=== PATIENT | male | born 1950 | race Caucasian/White ===

== ENCOUNTER 2016-06-24 11:17 | Inpatient (IN) | payer MEDICARE ==
--- NOTE | 2016-06-24 12:10 | ER Document Report ---
ED Neuro Symptoms/Deficit - General Chief Complaint: Numbness of Arm Stated Complaint: NUMBNESS LEFT ARM Notes: Patient says his left hand and arm have been known since 6:30 this morning. He got up at his usual time this morning and was getting his clothes on when he noticed that he had numbness of the left hand. 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 He had slight headache on the right denominational region, but it's gone now. 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 Patient went to his primary care provider's office this morning and they gave him 4 baby aspirins and referred him here for further evaluation and care. Patient says he thought he noted a slight bit of problem with his balance and felt a little wobbly when he tried to walk, especially when he turned. He has no involvement of his leg. Has never had this before. No nausea or vomiting. No chest pains. No difficulty breathing or shortness of breath. No recent illness or fever. TRAVEL OUTSIDE OF THE [place] IN LAST 30 DAYS: No - Related Data Allergies/Adverse Reactions: No Known Allergies Allergy (Verified 11/01/13 07:48) Past Medical History - Social History Smoking Status: Current Every Day Smoker Family History: Reviewed & Not Pertinent Patient has suicidal ideation: No Patient has homicidal ideation: No - Past Medical History Cardiac Medical History: Reports: Hx Coronary Artery Disease, Hx Heart Attack - , Hx Hypertension - since , Hx Heart Murmur Denies: Hx Congestive Heart Failure Pulmonary Medical History: Reports: Hx Bronchitis, Hx Pneumonia Neurological Medical History: Denies: Hx Cerebrovascular Accident Endocrine Medical History: Denies: Hx Diabetes Mellitus Type 1, Hx Diabetes Mellitus Type 2 GI Medical History: Musculoskeltal Medical History: 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 EENT: Denies eye, ear, nose or mouth or throat pain or other symptoms. CARDIOVASCULAR: Denies chest pain. RESPIRATORY: Denies cough, chest congestion, or shortness of breath. GASTROINTESTINAL: Denies abdominal pain or nausea, vomiting, or diarrhea. GENITOURINARY: Denies difficulty or painful urinating, urinary frequency, blood in urine. MUSCULOSKELETAL: Denies back or neck pain. Denies joint pain or swelling. SKIN: Denies rash or skin lesions. NEUROLOGICAL: Denies LOC or altered mental status. Had a slight headache, gone now. See history of present illness. ALL OTHER SYSTEMS REVIEWED AND NEGATIVE. Physical Exam - Vital signs Vitals: Pulse Ox 99 06/24/16 11:50 Interpretation: Normal - Notes Notes: PHYSICAL EXAMINATION: GENERAL: Well-appearing, in no acute distress. HEAD: Atraumatic, normocephalic. EYES: Pupils equal round and reactive to light, extraocular movements intact. ENT: oropharynx clear without exudates. Moist mucous membranes. No carotid bruits heard. NECK: Normal range of motion, supple. LUNGS: Breath sounds clear and equal bilaterally. HEART: Regular rate and rhythm without murmurs. ABDOMEN: Soft, nontender. No guarding or rebound. BACK: No tenderness throughout entire back. EXTREMITIES: Normal range of motion without pain. NEUROLOGICAL: Normal speech, normal gait. Normal sensory, motor, and reflex exams. Awake, alert, and oriented x3. Cranial nerves normal. 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 PSYCH: Normal mood, normal affect. SKIN: Warm, dry, no rashes. Course - Re-evaluation Re-evalutation: 06/24/16 13:54 All workup has been normal, except for a possible pulmonary nodule. The chest x -ray. Radiology recommends a repeat chest x-ray with nipple markers and if that 's not decisive, patient may need a CT scan. Patient says that he was experiencing some chest pains that started about 10 minutes ago, but have now just about eased off. He points to the left anterior chest. Patient says he rarely had chest pain with all of his coronary artery disease in the past and hasn't taken any nitroglycerin for years. I spoke with the hospitalist sec reporting consultant and patient will be admitted to telemetry for observation. Also made hospitalist aware that patient has a questionable nodule on his x-ray and a follow-up x-ray with nipple markers has been ordered and the radiologist recommended a CT of the chest if those nipple markers are inconclusive. Patient also made aware. - Vital Signs Vital signs: Temp Pulse Resp BP Pulse Ox 58 L 18 149/84 H 99 06/24/16 12:00 06/24/16 12:01 06/24/16 12:01 06/24/16 12:01 - Laboratory Result Diagrams: 06/24/16 11:53 06/24/16 11:53 Laboratory results interpreted by me: 06/24/16 06/24/16 11:53 11:53 RBC 4.13 L Hgb 13.2 L RDW 14.4 H BUN 23 H Discharge - Discharge Clinical Impression: Left hand weakness Stroke Qualifiers: CVA mechanism: unspecified Qualified Code(s): I63.9 - Cerebral infarction, unspecified Admitting Provider: Hospitalist Unit Admitted: Telemetry Referrals: TAY HARE MD [Primary Care Provider] - Follow up as needed
[2016-06-24 12:32] LABS: PARTIAL THROMBOPLASTIN TIME 31.6 SEC (23.5-35.8)
[2016-06-24 12:34] LABS: ABSOLUTE LYMPHOCYTES (AUTO) 1.4 10^3/uL (0.5-4.7); ABSOLUTE MONOCYTES (AUTO) 0.6 10^3/uL (0.1-1.4); ABSOLUTE NEUT (AUTO) 3.4 10^3/uL (1.7-8.2); BASOPHILS % (AUTO) 0.3 % (0-2); EOSINOPHILS % (AUTO) 0.3 % (0-6); HEMOGLOBIN 13.2 g/dL (13.5-17.0); HGB HCT DIFFERENCE 0.6; LYMPHOCYTES % (AUTO) 26.1 % (13-45); MEAN CORPUSCULAR VOLUME 94 fl (80-97); MONOCYTES % (AUTO) 11.1 % (3-13); RED BLOOD COUNT 4.13 10^6/uL (4.35-5.55); RED CELL DISTRIBUTION WIDTH 14.4 % (11.5-14.0); SEGMENTED NEUTROPHILS % (AUTO) 62.2 % (42-78); WHITE BLOOD COUNT 5.5 10^3/uL (4.0-10.5)
[2016-06-24 12:35] LABS: ALANINE AMINOTRANSFERASE 38 U/L (21-72); ALBUMIN 4.2 g/dL (3.5-5.0); ALKALINE PHOSPHATASE 99 U/L (38-126); ANION GAP 13 (5-19); ASPARTATE AMINO TRANSFERASE 30 U/L (17-59); BILIRUBIN,DIRECT 0.3 mg/dL (0.0-0.4); BILIRUBIN,TOTAL 0.7 mg/dL (0.2-1.3); BLOOD UREA NITROGEN 23 mg/dL (7-20); CALCIUM 9.6 mg/dL (8.4-10.2); CARBON DIOXIDE 25 mmol/L (22-30); CHLORIDE 106 mmol/L (98-107); CREATINE KINASE 83 U/L (55-170); CREATININE RESULT 1.02 mg/dL (0.52-1.25); GLUCOSE 79 mg/dL (75-110); POTASSIUM 4.6 mmol/L (3.6-5.0); SODIUM 143.9 mmol/L (137-145); TOTAL PROTEIN 7.4 g/dL (6.3-8.2)
[2016-06-24 12:46] LABS: CREATINE KINASE MB 1.03 ng/mL (<4.55)
[2016-06-24 12:50] LABS: TROPONIN I < 0.012 ng/mL
[2016-06-24] MEDS ORDERED: ACETAMINOPHEN 325 MG TABLET PO PRN (13:55)
[2016-06-24] MEDS ORDERED: TRAMADOL HCL 50 MG TABLET PO PRN (13:55)
--- NOTE | 2016-06-24 14:21 | EKG REPORT ---
SEVERITY:- BORDERLINE ECG - SINUS RHYTHM BORDERLINE R WAVE PROGRESSION, ANTERIOR LEADS : Confirmed by: Mary Arcos 24-Jun-2016 14:20:33
--- NOTE | 2016-06-24 15:12 | PDOC H&P ---
History of Present Illness Admission Date/PCP: 06/24/16 13:55 TAY HARE MD Patient complains of: Left arm weakness and numbness History of Present Illness: LIZETH GÓMEZ is a 66 year old male with past medical history of CAD, status post CABG, status post stent 3, essential hypertension, dyslipidemia, GERD, and tobacco abuse. Presents to [facility] emergency room from his primary care provider's office late this morning, after noting left arm weakness and numbness as well as some difficulty in walking with his left leg. He denies any headache, neck pain or shoulder pain. He has had prior neck surgeries in the past. The numbness and weakness has been consistent has not improved or worsened over the course of the day. He was given 4 baby aspirin by his primary care provider and referred to the emergency room for evaluation. He denies any other symptoms. He has no facial droop or difficulty swallowing. He denies any chest pain, palpitations or dyspnea. He denies any nausea, vomiting or abdominal pain. Initial CT of the head was unremarkable. Past Medical History Cardiac Medical History: Reports: Coronary Artery Disease, Myocardial Infarction - , Hypertension - since , Heart Murmur Denies: Congestive Heart Failure Pulmonary Medical History: Reports: Bronchitis, Pneumonia Neurological Medical History: Reports: None Endocrine Medical History: Reports: None Denies: Diabetes Mellitus Type 1, Diabetes Mellitus Type 2 Renal/ Medical History: Reports: None Malignancy Medical History: Reports: None GI Medical History: Reports: None Musculoskeltal Medical History: Reports: Arthritis - left elbow Skin Medical History: Reports: None Psychiatric Medical History: Reports: None Traumatic Medical History: Reports: None Hematology: Reports: None Denies: Anemia Infectious Medical History: Reports: None Past Surgical History Past Surgical History: Reports: Cardiac Catheterization - 3 stents, Coronary Artery Bypass Graft - 1994, four-vessel, Coronary Stent - 3, Orthopedic Surgery - Neck surgery 2003, Other - Surgery for removal of some tissue from his lung in 1981, noncancerous Social History Information Source: Patient Lives with: Spouse/Significant other Smoking Status: Current Every Day Smoker Cigarettes Packs Per Day: 1 Number of Years Smokin Last Time Smoked: yesterday Frequency of Alcohol Use: Occasional Hx Recreational Drug Use: No Hx Prescription Drug Abuse: No - Advance Directive Resuscitation Status: Do Not Resuscitate Surrogate healthcare decision maker:: Family History Family History: CAD, Hyperlipidemia, Hypertension Parental Family History Reviewed: Yes Children Family History Reviewed: Yes Sibling(s) Family History Reviewed.: Yes Medication/Allergy Home Medications: Amlodipine Besylate [Norvasc 5 mg Tablet] 5 mg PO DAILY 07/19/12 Ascorbic Acid [Vitamin C] 2,000 mg PO DAILY 07/19/12 Aspirin [Ecotrin 81 mg EC Tablet] 81 mg PO DAILY 07/19/12 Atorvastatin Calcium [Lipitor 40 mg Tablet] 40 mg PO QHS 07/19/12 Doxazosin Mesylate [Cardura 2 Mg Tablet] 2 mg PO DAILY 07/19/12 Lisinopril [Zestril] 10 mg PO DAILY 11/01/13 Metoprolol Succinate [Toprol Xl] 50 mg PO DAILY 11/01/13 Allergies/Adverse Reactions: No Known Allergies Allergy (Verified 11/01/13 07:48) Review of Systems Constitutional: ABSENT: chills, fever(s), headache(s), weight gain, weight loss Eyes: ABSENT: visual disturbances Ears: ABSENT: hearing changes Cardiovascular: ABSENT: chest pain, dyspnea on exertion, edema, orthropnea, palpitations Respiratory: ABSENT: cough, hemoptysis Gastrointestinal: ABSENT: abdominal pain, constipation, diarrhea, hematemesis, hematochezia, nausea, vomiting Genitourinary: ABSENT: dysuria, hematuria Musculoskeletal: ABSENT: joint swelling Integumentary: ABSENT: rash, wounds Neurological: PRESENT: numbness, paresthesias - left arm, nor, weakness Psychiatric: ABSENT: anxiety, depression, homidical ideation, suicidal ideation Endocrine: ABSENT: cold intolerance, heat intolerance, polydipsia, polyuria Hematologic/Lymphatic: ABSENT: easy bleeding, easy bruising Physical Exam Vital Signs: Temp Pulse Resp BP Pulse Ox 58 L 18 149/84 H 99 06/24/16 12:00 06/24/16 12:01 06/24/16 12:01 06/24/16 12:01 General appearance: PRESENT: no acute distress, well-developed, well-nourished Head exam: PRESENT: atraumatic, normocephalic Eye exam: PRESENT: conjunctiva pink, EOMI, PERRLA. ABSENT: scleral icterus Ear exam: PRESENT: normal external ear exam Mouth exam: PRESENT: moist, tongue midline Neck exam: ABSENT: carotid bruit, JVD, lymphadenopathy, thyromegaly Respiratory exam: PRESENT: clear to auscultation halle. ABSENT: rales, rhonchi, wheezes Cardiovascular exam: PRESENT: RRR, +S1, +S2, systolic murmur Pulses: PRESENT: normal dorsalis pedis pul Vascular exam: PRESENT: normal capillary refill GI/Abdominal exam: PRESENT: normal bowel sounds, soft. ABSENT: distended, guarding, mass, organolmegaly, rebound, tenderness Rectal exam: PRESENT: deferred Extremities exam: PRESENT: full ROM. ABSENT: calf tenderness, clubbing, pedal edema Neurological exam: PRESENT: alert, awake, oriented to person, oriented to place , oriented to time, oriented to situation, CN II-XII grossly intact. ABSENT: motor sensory deficit Psychiatric exam: PRESENT: appropriate affect, normal mood. ABSENT: homicidal ideation, suicidal ideation Skin exam: PRESENT: dry, intact, warm. ABSENT: cyanosis, rash Results Impressions: Head CT 06/24/16 11:25 IMPRESSION: No acute intracranial abnormality identified. Chest X-Ray 06/24/16 12:20 IMPRESSION: Chronic lung changes with possible 10 mm right pulmonary nodule. Consider a PA view of the chest with a nipple marker. Consider CT. Assessment & Plan - Time Time Spent: 50 to 70 Minutes Critical Time spent with patient: 25-34 minutes
[2016-06-24] MEDS: LISINOPRIL 10 MG TABLET PO SCH (21:23)
[2016-06-24] MEDS ORDERED: ATORVASTATIN CALCIUM 10 MG TABLET PO SCH (22:00)
[2016-06-25 05:26] LABS: HEMOGLOBIN 12.7 g/dL (13.5-17.0); HGB HCT DIFFERENCE 1.1; MEAN CORPUSCULAR HEMOGLOBIN 32.2 pg (27.0-33.4); MEAN CORPUSCULAR HGB CONC 34.4 g/dL (32.0-36.0); MEAN CORPUSCULAR VOLUME 94 fl (80-97); RED BLOOD COUNT 3.96 10^6/uL (4.35-5.55); RED CELL DISTRIBUTION WIDTH 14.1 % (11.5-14.0); WHITE BLOOD COUNT 5.8 10^3/uL (4.0-10.5)
[2016-06-25 05:46] LABS: ALANINE AMINOTRANSFERASE 37 U/L (21-72); ALBUMIN 3.6 g/dL (3.5-5.0); ALKALINE PHOSPHATASE 84 U/L (38-126); ANION GAP 11 (5-19); ASPARTATE AMINO TRANSFERASE 27 U/L (17-59); BILIRUBIN,DIRECT 0.1 mg/dL (0.0-0.4); BILIRUBIN,TOTAL 0.5 mg/dL (0.2-1.3); BLOOD UREA NITROGEN 24 mg/dL (7-20); CALCIUM 9.2 mg/dL (8.4-10.2); CARBON DIOXIDE 23 mmol/L (22-30); CHLORIDE 108 mmol/L (98-107); CHOLESTEROL 129.67 mg/dL (0-200); CREATININE RESULT 1.01 mg/dL (0.52-1.25); Direct HDL 34 mg/dL (>40); GLUCOSE 87 mg/dL (75-110); POTASSIUM 4.4 mmol/L (3.6-5.0); SODIUM 141.8 mmol/L (137-145); TOTAL PROTEIN 6.4 g/dL (6.3-8.2); TRIGLYCERIDES 140 mg/dL (<150)
[2016-06-25 05:56] LABS: DIRECT LDL 62 mg/dL (<100)
[2016-06-25] MEDS ORDERED: ENOXAPARIN SODIUM INJ 40 MG/0.4 ML DISP.SYRIN SUBCUT SCH (08:00)
[2016-06-25] MEDS ORDERED: AMLODIPINE BESYLATE 10 MG TABLET PO SCH (10:00)
[2016-06-25] MEDS ORDERED: DOXAZOSIN MESYLATE 2 MG TABLET PO SCH (10:00)
[2016-06-25] MEDS ORDERED: FLUTICASONE NASAL SPRAY 50 MCG/SPRY 120 SPRAY/16 GM NASL SCH (10:00)
[2016-06-25] MEDS ORDERED: METOPROLOL SUCCINATE 50 MG TAB.SR.24H PO SCH (10:00)
[2016-06-25] MEDS ORDERED: ASPIRIN 325 MG TABLET, ENT COATED PO SCH (10:00)
[2016-06-25] MEDS: LISINOPRIL 10 MG TABLET PO SCH (10:51)
--- NOTE | 2016-06-25 13:42 | XCELERA REPORT ---
[address] [address] Transthoracic Echocardiogram Report Name: LIZETH GÓMEZ Age: 66 yrs Gender: Male : 1950 Patient Status: Inpatient Patient Location: 3S\S\330\S\A Study Date: 06/25/2016 09:56 AM Height: 68 in Weight: 160 lb BSA: 1.9 m2 Procedure: A two-dimensional transthoracic echocardiogram with color flow and Doppler was performed. The study was technically limited with all images being suboptimal in quality. Reason For Study: CVA History: CVA. Ordering Physician: HANS CELESTE Performed By: Barb Moe Interpretation Summary There is no obvious cardiac source of embolus noted on this transthoracic echocardiogram. Follow-up with a BETITO is suggested if cardiac source is still suspected. The left ventricle is mildly dilated. There is normal left ventricular wall thickness. LV EF is 55% Left ventricular systolic function is low normal. Doppler measurements suggest normal left ventricular diastolic function The left ventricular wall motion is normal. There is no thrombus. The right ventricle is not well visualized secondary to technical limitations The right atrium is normal. The left atrial size is normal. The interatrial septum is intact with no evidence for an atrial septal defect. There is no evidence of mitral valve prolapse. There is no vegetation seen on the mitral valve. There is no mitral valve stenosis. There is a mild to moderate amount of mitral regurgitation There is no aortic valve stenosis There is no LVOT obstruction. There is a mild amount of aortic regurgitation There is no tricuspid stenosis. There is a mild amount of tricuspid regurgitation Right ventricular systolic pressure is normal. RVSP is 26 mm of Hg , with RA mean of 5. There is no pericardial effusion. There is no obvious cardiac source of embolus noted on this transthoracic echocardiogram. Follow-up with a BETITO is suggested if cardiac source is still suspected MMode/2D Measurements \T\ Calculations RVDd: 3.0 cm LVIDd: 5.6 cm FS: 22.0 % Ao root diam: 2.7 cm IVSd: 1.0 cm LVIDs: 4.4 cm EDV(Teich): 155.4 ml LVPWd: 1.1 cm ESV(Teich): 87.1 ml Ao root area: 5.6 cm2 EF(Teich): 43.9 % LA dimension: 3.9 cm Doppler Measurements \T\ Calculations MV E max stephen: MV P1/2t max stephen: Ao V2 max: AI max stephen: 59.7 cm/sec 59.7 cm/sec 136.4 cm/sec 330.7 cm/sec MV A max stephen: MV P1/2t: 92.8 msec Ao max PG: AI max P.3 cm/sec 7.4 mmHg 44.2 mmHg MV E/A: 1.2 MVA(P1/2t): 2.4 cm2 AI dec slope: MV dec slope: 188.5 cm/sec2 168.2 cm/sec2 AI P1/2t: 575.9 msec LV V1 max PG: PA V2 max: TR max stephen: 5.9 mmHg 89.3 cm/sec 228.0 cm/sec LV V1 max: PA max P.2 mmHg TR max P.4 cm/sec 20.8 mmHg Left Ventricle The left ventricle is mildly dilated. There is normal left ventricular wall thickness. LV EF is 55%. Left ventricular systolic function is low normal. Doppler measurements suggest normal left ventricular diastolic function. The left ventricular wall motion is normal. There is no thrombus. There is no ventricular septal defect visualized. Right Ventricle The right ventricle is not well visualized secondary to technical limitations. Atria The right atrium is normal. The left atrial size is normal. The interatrial septum is intact with no evidence for an atrial septal defect. Mitral Valve There is no evidence of mitral valve prolapse. There is no vegetation seen on the mitral valve. There is no mitral valve stenosis. There is a mild to moderate amount of mitral regurgitation. Aortic Valve There is no aortic valvular vegetation. There is no aortic valve stenosis. There is no LVOT obstruction. There is a mild amount of aortic regurgitation. Tricuspid Valve There is no tricuspid stenosis. There is a mild amount of tricuspid regurgitation. Right ventricular systolic pressure is normal. RVSP is 26 mm of Hg , with RA mean of 5. Pulmonic Valve There is no pulmonic valvular stenosis. There is no pulmonic valvular regurgitation. Great Vessels The aortic root is normal size. Effusions There is no pericardial effusion. : HANS CELESTE > Paige Hamlin
[2016-06-25 15:47] VITALS: BP 139/67
--- NOTE | 2016-06-25 15:47 | PDOC DISCHARGE SUMMARY ---
General - Admit/Disc Date/PCP Admission Date/Primary Care Provider: 06/24/16 13:55 TAY HARE MD Discharge Date: 06/25/16 - Discharge Diagnosis (1) Stroke Is this a current diagnosis for this admission?: YesSummary: CT of the head negative on admission. Unable to do MRI due to sternal wires. Repeat CT of the head on Tuesday as an outpatient with primary care provider. Carotid duplex were negative. Transthoracic echo with no thrombus. Will increase aspirin to full dose. Follow up with PCP and [facility]. Encouraged patient to quit smoking (2) Left hand weakness Is this a current diagnosis for this admission?: YesSummary: 4/5 muscle strength in left upper arm. He initially had some weakness in the left leg which resolved. Makes orthopedic cause of weakness less likely. OT saw patient here recommend follow up with OT as an outpatient (3) Essential (primary) hypertension Is this a current diagnosis for this admission?: YesSummary: Continue current medications he is normotensive. (4) Dyslipidemia Is this a current diagnosis for this admission?: YesSummary: Continue statin (5) CAD (coronary artery disease) Is this a current diagnosis for this admission?: YesSummary: Continue current medications. - Additional Information Resuscitation Status: Full Code Home Medications: Alendronate Sodium [Fosamax 70 mg Tablet] 1 tab PO SA@0800 06/24/16 Amlodipine Besylate [Norvasc 10 mg Tablet] 10 mg PO DAILY 06/24/16 Calcium Carbonate/Vitamin D3 [Calcium 600 + Vit D Tablet] 1 tab PO DAILY Doxazosin Mesylate [Cardura 2 mg Tablet] 2 mg PO DAILY 06/24/16 Fluticasone Propionate [Flonase Nasal Byron 50 Mcg/Byron 16 gm] 2 sprays NASL DAILY 06/24/16 Lisinopril [Prinivil 10 mg Tablet] 10 mg PO Q12 06/24/16 Pravastatin Sodium [Pravachol] 20 mg PO QHS 06/24/16 Acetaminophen [Tylenol 325 mg Tablet] 650 mg PO Q4HP PRN tablet 06/25/16 Aspirin [Ecotrin 325 mg EC Tablet] 325 mg PO DAILY tabec 06/25/16 Tramadol HCl [Ultram 50 mg Tablet] 50 mg PO Q4HP PRN tablet 06/25/16 History of Present Illness Patient complains of: Left arm weakness History of Present Illness: LIZETH GÓMEZ is a 66 year old male with past medical history of CAD, status post CABG, status post stent 3, essential hypertension, dyslipidemia, GERD, and tobacco abuse. Presents to [facility] emergency room from his primary care provider's office late this morning, after noting left arm weakness and numbness as well as some difficulty in walking with his left leg. He denies any headache, neck pain or shoulder pain. He has had prior neck surgeries in the past. The numbness and weakness has been consistent has not improved or worsened over the course of the day. He was given 4 baby aspirin by his primary care provider and referred to the emergency room for evaluation. He denies any other symptoms. He has no facial droop or difficulty swallowing. He denies any chest pain, palpitations or dyspnea. He denies any nausea, vomiting or abdominal pain. Initial CT of the head was unremarkable. Hospital Course Hospital Course: Patient was admitted to the hospitalist service on telemetry. He underwent carotid duplex which was unremarkable. He underwent transthoracic echocardiogram, which showed no intracardiac thrombus an EF of 55%. He was unable to undergo MRI due to sternal wires in his chest from previous CABG surgery. He was evaluated by occupational therapy and physical therapy. Physical therapy found no lower extremity deficits. Occupational therapy recommended continued outpatient therapy for left upper extremity weakness 4 over 5 and fine motor dysfunction. Discussed with patient and his follow- up with his physician, repeat CT of the head could be obtained early next week to evaluate for embolic CVA. Physical Exam Vital Signs: Temp Pulse Resp BP Pulse Ox 98.3 F 59 L 16 140/82 H 100 06/25/16 11:37 06/25/16 12:00 06/25/16 12:00 06/25/16 12:00 06/25/16 12:00 Intake & Output 06/24/16 06/25/16 06/26/16 06:59 06:59 06:59 Intake Total 320 455 Balance 320 455 Weight 72.2 kg General appearance: PRESENT: no acute distress, well-developed, well-nourished Head exam: PRESENT: atraumatic, normocephalic Eye exam: PRESENT: conjunctiva pink, EOMI, PERRLA. ABSENT: scleral icterus Ear exam: PRESENT: normal external ear exam Mouth exam: PRESENT: moist, tongue midline Neck exam: ABSENT: carotid bruit, JVD, lymphadenopathy, thyromegaly Respiratory exam: PRESENT: clear to auscultation halle. ABSENT: rales, rhonchi, wheezes Cardiovascular exam: PRESENT: RRR. ABSENT: diastolic murmur, rubs, systolic murmur Pulses: PRESENT: normal dorsalis pedis pul Vascular exam: PRESENT: normal capillary refill GI/Abdominal exam: PRESENT: normal bowel sounds, soft. ABSENT: distended, guarding, mass, organolmegaly, rebound, tenderness Rectal exam: PRESENT: deferred Extremities exam: PRESENT: full ROM. ABSENT: calf tenderness, clubbing, pedal edema Neurological exam: PRESENT: alert, awake, oriented to person, oriented to place , oriented to time, oriented to situation, CN II-XII grossly intact, motor sensory deficit - left upper extremity 4/5 muscle strength Psychiatric exam: PRESENT: appropriate affect, normal mood. ABSENT: homicidal ideation, suicidal ideation Skin exam: PRESENT: dry, intact, warm. ABSENT: cyanosis, rash Results Laboratory Results: 06/25/16 04:52 06/25/16 04:52 06/25/16 06/25/16 04:52 04:52 WBC 5.8 RBC 3.96 L Hgb 12.7 L Hct 37.0 L MCV 94 MCH 32.2 MCHC 34.4 RDW 14.1 H Plt Count 139 L Sodium 141.8 Potassium 4.4 Chloride 108 H Carbon Dioxide 23 Anion Gap 11 BUN 24 H Creatinine 1.01 Est GFR ( Amer) > 60 Est GFR (Non-Af Amer) > 60 Glucose 87 Calcium 9.2 Total Bilirubin 0.5 AST 27 ALT 37 Alkaline Phosphatase 84 Total Protein 6.4 Albumin 3.6 Triglycerides 140 Cholesterol 129.67 LDL Cholesterol Direct 62 VLDL Cholesterol 28.0 HDL Cholesterol 34 L Impressions: Head CT 06/24/16 11:25 IMPRESSION: No acute intracranial abnormality identified. Chest X-Ray 06/24/16 13:46 IMPRESSION: No pulmonary mass is present. Carotid Doppler Study 06/24/16 13:58 IMPRESSION: BILATERAL PLAQUE. 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 Qualifiers PATEINT BEING DISCHARGED WITH ANY OF THE FOLLOWING DIAGNOSIS?: Stroke Stroke Pt being discharged on Anti-thrombolytic therapy?: Yes Stroke Pt being discharged on Anti-coagulation therapy?: Yes Stroke Pt being discharged on Statins?: Yes Plan Discharge Plan: Home with
== END 2016-06-25 16:15 | disposition home or self-care (01) | DRG 65 ==
LOC: ER 11:17 → EH 13:55 → UNDOADMIN 14:14 → 3S 18:45
PROVIDERS: ADMIT Emergency Medicine; ATTEND Emergency Medicine
DX: I63.9 Cerebral infarction, unspecified (principal); G81.94 Hemiplegia, unspecified affecting left nondominant side; I10 Essential (primary) hypertension; E78.5 Hyperlipidemia, unspecified; I25.10 Atherosclerotic heart disease of native coronary artery without angina pectoris; K21.9 Gastro-esophageal reflux disease without esophagitis; F17.210 Nicotine dependence, cigarettes, uncomplicated; M13.822 Other specified arthritis, left elbow; Z66 Do not resuscitate; I25.2 Old myocardial infarction; Z95.1 Presence of aortocoronary bypass graft; Z95.5 Presence of coronary angioplasty implant and graft; Z79.899 Other long term (current) drug therapy; Z79.82 Long term (current) use of aspirin; Z82.49 Family history of ischemic heart disease and other diseases of the circulatory system
CPT/HCPCS: 36415; 70450; 71010; 80053; 80061; 82550; 82553; 84484; 85025; 85027; 85610; 85730; 93005; 93010; 93306; 93880; 99285; G8978-GP; G8979-GP; G8980-GP; G8987-GO; G8988-GO; G8989-GO; J1650; J3490

== ENCOUNTER → 2016-07-01 | Outpatient (CLI) | payer MEDICARE | LOC: RAD 11:14 | PROVIDERS: ATTEND Family Medicine | DX: I63.9 Cerebral infarction, unspecified (principal) | CPT/HCPCS: 70450 ==

== ENCOUNTER → 2016-08-10 | Outpatient (CLI) | payer MEDICARE ==
[~2016-08-10] MED LIST: AMINOPHYLLINE INJ/PF 250 MG/10 ML SDV IV ONE; REGADENOSON INJ 0.4 MG/5 ML DISP.SYRIN IV ONE
--- NOTE | 2016-08-11 08:13 | RADIOLOGY REPORT ---
STRESS TEST REPORT PATIENT NAME: LIZETH GÓMEZ ROOM#: DATE OF SERVICE: 08/10/2016 AGE: 66Y ORDER#: [id number] REFERRING MD: MARY ECHAVARRIA M.D. INDICATION: For assessment of coronary artery disease, status post stents, assess chest pains. PROCEDURE PERFORMED REST/STRESS SINGLE ISOTOPE CARDIOLITE SPECT IMAGING WITH IV LEXISCAN STRESS AND GATED SPECT IMAGING CLINICAL HISTORY This is a 66-year-old male with known coronary artery disease, status post three stents, with continuing cardiac risk factors of hypertension and hypercholesterolemia. Current symptomatology includes chest pains. PROCEDURE The patient received IV Lexiscan 0.4 mg infused over ten seconds and flushed. The resting heart rate was 56 bpm and increased to 86 bpm at end infusion. The resting BP was 147/92 and stabilized at 148/86 at end infusion. The patient had symptoms of severe shortness of breath, this required 100 mg IV Aminophylline given five minutes post injection for reversal. His shortness of breath totally dissipated. The resting 12 lead EKG showed normal sinus rhythm at 56 bpm, PACs, old anteroseptal [place], no ST changes. At end infusion, no ST changes were seen. Myocardial perfusion imaging was performed at rest 60 minutes following injection of 11.82 mCi Cardiolite. Ten seconds after the IV Lexiscan injection, the patient was injected with 33.0 mCi Cardiolite and flushed. Gated post stress tomographic imaging was performed greater than one hour after stress. There was significant stomach lining uptake superimposed on the inferior wall. repeated rest images delayed scanning was done to try to optimise resting images. FINDINGS: The overall quality of the study is poor. This is due to extracardiac stomach lining uptake of the Cardiolite superimposed on the inferior and inferolateral wall of the left ventricle. Therefore, the inferior wall and inferolateral wall perfusion information is unreliable There is no abnormal transient ischemic dilatation of the left ventricle. The left ventricular cavity is noted to be enlarged on both the rest and stress studies. SPECT images showed a small mild reversible perfusion defect in the mid anterior wall. There was a moderate area of fixed perfusion defect in the basal inferior wall, inferior wall, and inferolateral wall, and this is a fixed perfusion defect. The gated SPECT images showed reduced motion and contraction of the inferior wall. The left ventricular ejection fraction was calculated to be 43%. IMPRESSION: MYOCARDIAL PERFUSION IMAGING IS NONDIAGNOSTIC. THERE IS A SMALL AREA OF MILD REVERSIBLE PERFUSION IN THE MID ANTERIOR WALL PLUS THERE IS A FIXED PERFUSION DEFECT IN THE INFERIOR WALL AND INFEROLATERAL WALL. LEFT VENTRICULAR SYSTOLIC FUNCTION WAS REDUCED TO 43% WITH REDUCED MOTION AND CONTRACTION OF THE INFERIOR WALL. NO PRIOR STUDIES FOR COMPARISON. INTERPRETING PHYSICIAN: MARY ECHAVARRIA M.D. /: [place] TT: [id number] ID: [id number] /: [id number] TD: 0922 JOB: [id number] cc:MARY ECHAVARRIA M.D. > MTDD
== END ==
LOC: RAD 06:22
PROVIDERS: ATTEND Internal Medicine Cardiovascular Disease
DX: I25.718 Atherosclerosis of autologous vein coronary artery bypass graft(s) with other forms of angina pectoris (principal)
CPT/HCPCS: 93017; 78452; A9500; J2785; J0280; Q9969

== ENCOUNTER 2016-08-17 20:11 | Emergency (ER) | payer MEDICARE, OTHER ==
--- NOTE | 2016-08-17 20:43 | ER Document Report ---
ED Neuro Symptoms/Deficit - General Chief Complaint: Numbness Stated Complaint: STROKE LIKE SYMPTOMS Time Seen by Provider: 08/17/16 20:20 Notes: Patient is a 66-year-old male, past medical history CVA 2 months ago with no residual deficits, hypertension, ACS s/p 3 stents, presents with mild numbness of his left arm and left leg that started at 1900 today. He was showering when the symptoms began. He had similar symptoms 2 months ago that resolved on their own. He says that the numbness is already resolving. He took his Aggrenox today. He denies weakness, numbness, tingling, chest pain, shortness of breath, blurry vision, ataxia, fevers, neck pain or back pain. TRAVEL OUTSIDE OF THE [place] IN LAST 30 DAYS: No - Related Data Allergies/Adverse Reactions: No Known Allergies Allergy (Verified 11/01/13 07:48) Past Medical History - General Information source: Patient - Social History Smoking Status: Unknown if Ever Smoked Family History: CAD, Hyperlipidemia, Hypertension - Past Medical History Cardiac Medical History: Reports: Hx Coronary Artery Disease, Hx Heart Attack - , Hx Hypertension - since , Hx Heart Murmur Denies: Hx Congestive Heart Failure Pulmonary Medical History: Reports: Hx Bronchitis, Hx Pneumonia Neurological Medical History: Denies: Hx Cerebrovascular Accident Endocrine Medical History: Denies: Hx Diabetes Mellitus Type 1, Hx Diabetes Mellitus Type 2 Renal/ Medical History: Denies: Hx Peritoneal Dialysis GI Medical History: Musculoskeltal Medical History: 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 RESPIRATORY: -cough, -SOB GASTROINTESTINAL: -abdominal pain, - nausea, -vomiting, -diarrhea GENITOURINARY: -dysuria, -hematuria MUSCULOSKELETAL: -back pain, -neck pain SKIN: -rash or skin lesions. HEMATOLOGIC: -easy bruising or bleeding. LYMPHATIC: -swollen, enlarged glands. NEUROLOGICAL: +left arm and leg numbness, -altered mental status or loss of consciousness, -headache, -weakness PSYCHIATRIC: -anxiety, -depression. ALL OTHER SYSTEMS REVIEWED AND NEGATIVE. Physical Exam - Vital signs Vitals: Temp Resp BP Pulse Ox 98.2 F 15 156/90 H 98 08/17/16 20:15 08/17/16 20:15 08/17/16 20:15 08/17/16 20:15 - Notes Notes: PHYSICAL EXAMINATION: GENERAL: Well-appearing, well-nourished and in no acute distress. HEAD: Atraumatic, normocephalic. EYES: Pupils equal round and reactive to light, extraocular movements intact, sclera anicteric, conjunctiva are normal. ENT: nares patent, oropharynx clear without exudates. Moist mucous membranes. NECK: Normal range of motion, supple without lymphadenopathy LUNGS: Breath sounds clear to auscultation bilaterally and equal. No wheezes rales or rhonchi. HEART: Regular rate and rhythm without murmurs ABDOMEN: Soft, nontender, normoactive bowel sounds. No guarding, no rebound. No masses appreciated. EXTREMITIES: Normal range of motion, no pitting or edema. No cyanosis. NEUROLOGICAL: Cranial nerves grossly intact. Normal speech, normal gait. Normal motor exams. Decreased sensation over left upper arm and left thigh. PSYCH: Normal mood, normal affect. SKIN: Warm, Dry, normal turgor, no rashes or lesions noted. Course - Re-evaluation Re-evalutation: Pt with numbness of his left arm and left thigh that started 1.5 hours prior to arrival to the ER. His NIHSS is 2. ABCD2 score is 3. Symptoms are resolving. Spoke to patient, and daughter about risks and benefits of TPA. With low NIH stroke scale and resolving symptoms, using joint decision making, it was agreed upon that the risks of TPA would outweigh the benefits. Pt already took his Aggrenox. 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 He has an appointment with his primary care physician in 2 days and he sees his neurologist soon. Offered patient admission for further evaluation, but with his PMD/Cardiology/Neurology appointments this week, he would like to f/u as an outpatient. Given strict return precautions and he understands. - Vital Signs Vital signs: Temp Pulse Resp BP Pulse Ox 98.2 F 15 168/82 H 99 08/17/16 20:15 08/17/16 22:01 08/17/16 22:00 08/17/16 22:01 - Laboratory Result Diagrams: 08/17/16 20:51 08/17/16 20:51 Laboratory results interpreted by me: 08/17/16 08/17/16 20:51 20:51 RBC 3.51 L Hgb 11.2 L Hct 33.7 L Plt Count 137 L BUN 26 H - Diagnostic Test Radiology reviewed: Image reviewed, Reports reviewed Radiology results interpreted by me: CT Head: NAD CXR: NAD - EKG Interpretation by Me EKG shows normal: Sinus rhythm, [place], Intervals, QRS Complexes, ST-T Waves Rate: Bradycardia - 49 Discharge - Discharge Clinical Impression: Numbness Condition: Stable Disposition: HOME, SELF-CARE Additional Instructions: Transient Ischemic Attack You have been diagnosed as having a transient ischemic attack (TIA). This is caused when an artery to the brain has been temporarily blocked. It can result in visual changes, difficulty with speech, and weakness or numbness -- usually limited to one side of the body. TIA symptoms usually resolve within an hour, but a TIA is serious, as it may be a warning sign of an impending stroke. To prevent further episodes, you may be placed on medication to reduce the possibility that your platelets will aggregate and form blood clots in the arteries that supply the brain. Usually, this includes aspirin and sometimes other platelet inhibitors. Further evaluation is often necessary to make an exact diagnosis as to where these blood clots are originating, and if anything else needs to be done to correct the problem. Call the physician or go to the emergency room if episodes occur with increasing frequency. If symptoms occur that don't go away within a few minutes , call 911. Forms: Elevated Blood Pressure Referrals: TAY HARE MD [Primary Care Provider] - Follow up as needed SCARLET MCKEON MD [ACTIVE STAFF] - Follow up as needed
[2016-08-17 21:09] LABS: ABSOLUTE EOSINOPHILS # (AUTO) 0.1 10^3/uL (0.0-0.6); ABSOLUTE LYMPHOCYTES (AUTO) 1.6 10^3/uL (0.5-4.7); ABSOLUTE MONOCYTES (AUTO) 0.5 10^3/uL (0.1-1.4); ABSOLUTE NEUT (AUTO) 2.5 10^3/uL (1.7-8.2); BASOPHILS % (AUTO) 0.4 % (0-2); EOSINOPHILS % (AUTO) 2.7 % (0-6); HEMATOCRIT 33.7 % (37.9-51.0); HEMOGLOBIN 11.2 g/dL (13.5-17.0); HGB HCT DIFFERENCE -0.1; MEAN CORPUSCULAR HGB CONC 33.3 g/dL (32.0-36.0); MEAN CORPUSCULAR VOLUME 96 fl (80-97); MONOCYTES % (AUTO) 10.1 % (3-13); RED BLOOD COUNT 3.51 10^6/uL (4.35-5.55); RED CELL DISTRIBUTION WIDTH 13.9 % (11.5-14.0); SEGMENTED NEUTROPHILS % (AUTO) 53.8 % (42-78); WHITE BLOOD COUNT 4.7 10^3/uL (4.0-10.5)
[2016-08-17 21:15] LABS: PROTHROMBIN TIME 13.2 SEC (11.4-15.4)
[2016-08-17 21:16] LABS: PARTIAL THROMBOPLASTIN TIME 31.5 SEC (23.5-35.8)
--- NOTE | 2016-08-17 21:25 | RADIOLOGY REPORT (SQ) ---
EXAM DESCRIPTION: CT HEAD WITHOUT COMPLETED DATE/TIME: 08/17/2016 9:12 pm REASON FOR STUDY: left arm/leg numbness COMPARISON: 07/01/2016 TECHNIQUE: Axial images acquired through the brain without intravenous contrast. Images reviewed wi th bone, brain and subdural windows. Images stored on PACS. All CT scanners at this facility use dose modulation, iterative reconstruction, and/or weight based d osing when appropriate to reduce radiation dose to as low as reasonably achievable (ALARA). [facility]: Dose Right [facility]: CareDose [facility]: Dose Right [facility]: Teradose 4D [facility]: Computime RADIATION DOSE: Up-to-date CT equipment and radiation dose reduction techniques were employed. CTDIv ol: 55.3 mGy. DLP: 885 mGy-cm. mGy. LIMITATIONS: None. FINDINGS: VENTRICLES: Normal size and contour. CEREBRUM: No masses. No hemorrhage. No midline shift. Normal carrasquillo/white matter differentiation. N o evidence for acute infarction. CEREBELLUM: No masses. No hemorrhage. No alteration of density. No evidence for acute infarction. EXTRAAXIAL SPACES: No fluid collections. No masses. ORBITS AND GLOBE: No intra- or extraconal masses. Normal contour of globe without masses. CALVARIUM: No fracture. PARANASAL SINUSES: No fluid or mucosal thickening. SOFT TISSUES: No mass or hematoma. OTHER: No other significant finding. IMPRESSION: NORMAL BRAIN CT WITHOUT CONTRAST. TECHNICAL DOCUMENTATION: JOB ID: [id number] Quality ID # [id number]: Final reports with documentation of one or more dose reduction techniques (e.g., Au tomated exposure control, adjustment of the mA and/or kV according to patient size, use of iterative reconstruction technique) 2010 [employer]- All Rights Reserved
--- NOTE | 2016-08-17 21:26 | RADIOLOGY REPORT (SQ) ---
EXAM DESCRIPTION: CHEST SINGLE VIEW COMPLETED DATE/TIME: 08/17/2016 9:13 pm REASON FOR STUDY: chest pain COMPARISON: 06/24/2016 EXAM PARAMETERS: NUMBER OF VIEWS: One view. TECHNIQUE: Single frontal radiographic view of the chest acquired. RADIATION DOSE: NA LIMITATIONS: None. FINDINGS: LUNGS AND PLEURA: There is scarring in the left base. No consolidation or effusions. MEDIASTINUM AND HILAR STRUCTURES: No masses. Contour normal. HEART AND VASCULAR STRUCTURES: Heart normal in size. Normal vasculature. BONES: No acute findings. HARDWARE: Unchanged. OTHER: No other significant finding. IMPRESSION: Stable chest. No acute findings. TECHNICAL DOCUMENTATION: JOB ID: [id number]
[2016-08-17 21:33] LABS: ALANINE AMINOTRANSFERASE 39 U/L (21-72); ALBUMIN 3.7 g/dL (3.5-5.0); ALKALINE PHOSPHATASE 96 U/L (38-126); ANION GAP 11 (5-19); ASPARTATE AMINO TRANSFERASE 30 U/L (17-59); BILIRUBIN,DIRECT 0.3 mg/dL (0.0-0.4); BILIRUBIN,TOTAL 0.4 mg/dL (0.2-1.3); BLOOD UREA NITROGEN 26 mg/dL (7-20); CARBON DIOXIDE 24 mmol/L (22-30); CHLORIDE 107 mmol/L (98-107); CREATINE KINASE 165 U/L (55-170); GLUCOSE 94 mg/dL (75-110); POTASSIUM 4.2 mmol/L (3.6-5.0); SODIUM 141.8 mmol/L (137-145); TOTAL PROTEIN 6.8 g/dL (6.3-8.2)
[2016-08-17 21:45] LABS: TROPONIN I < 0.012 ng/mL
--- NOTE | 2016-08-17 22:54 | ER Document Report ---
ED NIH Stroke Scale - NIH Stroke Scale When completed:: Before Alteplase *: 1. NIH scale should be completed with appropriate accompanying assessment tools. *: 2. The NIH should reflect what the patient is capable of doing and should not be coached by the clinician. 1a. Level of Consciousness: 0=Alert;keenly responsive -: 1=Drowsy -: 2=Obtunded -: 3=Coma/unresponsive or reflex to noxious stimuli. 1a. Responses: 0 1b. Orientation Questions: a. What month is it? -: b. How old are you? -: 0=Answers both questions correctly. -: 1=Answers one question correctly or patient is intubated or has orotracheal trauma. -: 2=Answers neither question correctly. 1b. Responses: 0 1c. Response to commands: a. Open and close eyes? -: b. Maturity Checker and release hand? -: Credit is given despite weakness. Demonstration of task is permitted. Substitute command if hands cannot be used. -: 0=Performs both tasks correctly -: 1=Performs one task correctly -: 2=Performs neither task correctly 1c. Responses: 0 2. Gaze: Establish eye contact and instruct patient to "Follow my finger" -: 0=Normal -: 1=Partial gaze palsy. Gaze is abnormal in one or both eyes, but where forced deviation or total gaze paresis is not present. -: 2=Forced deviation or total gaze paresis. 2. Responses: 0 3. Visual Basurto: Sees fingers in all four quadrants. -: 0=No visual loss. -: 1=Partial hemianopsia. -: 2=Complete hemianopsia. -: 3=Bilateral hemianopsia (including Cortical blindness) 3. Responses: 0 4. Facial Movement: Instruct patient to: -: a. Show me your teeth -: b. Raise your eyebrows -: c. Close your eyes -: d. Smile -: 0=Normal symmetrical movement -: 1=Minor paralysis (flattened nasolabial fold, asymmetry on smiling). -: 2=Partial paralysis (total or near total paralysis of lower face). -: 3=Complete paralysis of upper and lower face 4. Responses: 0 5. Motor functions (left arm): Alternate sides and extend each arm with palms down (90 degrees if sitting or 45 degrees for supine). -: 0=No drift;limb holds for full 10 seconds. -: 1=Drift; limb holds but drifts down before full 10 seconds, but does not hit bed. -: 2=Some effort against gravity; limb cannot get to or maintain position. -: 3=No effort against gravity; limb falls. -: 4=No movement. -: UN=Amputation, joint fusion, explain in comments. 5. Responses (left arm): 0 5. Motor Functions (right arm): Alternate sides and extend each arm with palms down (90 degrees if sitting or 45 degrees for supine). -: 0=No drift;limb holds for full 10 seconds. -: 1=Drift; limb holds but drifts down before full 10 seconds, but does not hit bed. -: 2=Some effort against gravity; limb cannot get to or maintain position. -: 3=No effort against gravity; limb falls. -: 4=No movement. -: UN=Amputation, joint fusion, explain in comments. 5. Responses (right arm): 0 6. Motor Functions (left leg): With patient lying supine, alternate sides and extend each leg (30 degrees always while supine). -: 0=No drift, leg holds position for full 5 seconds -: 1=Drift; leg falls before full 5 seconds but does not hit bed. -: 2=Some effort against gravity, leg falls to bed but some effort against gravity. -: 3=No effort against gravity, leg falls to bed immediately. -: 4=No movement. -: UN=Amputation, joint fusion; explain in comments. 6. Responses (left leg): 0 6. Motor Functions (right leg): With patient lying supine, alternate sides and extend each leg (30 degrees always while supine). -: 0=No drift, leg holds position for full 5 seconds -: 1=Drift; leg falls before full 5 seconds but does not hit bed. -: 2=Some effort against gravity, leg falls to bed but some effort against gravity. -: 3=No effort against gravity, leg falls to bed immediately. -: 4=No movement. -: UN=Amputation, joint fusion; explain in comments. 6. Responses (right leg): 0 7. Limb Ataxia: With eyes open instruct patient to: -: a. "Touch your finger to your nose". -: b. "Touch your heel to your ortiz" -: 0=Absent -: 1=Present in one limb. -: 2=Present in two limbs. -: UN=Amputation or joint fusion; explain in comments. 7. Responses: 0 8. Sensory: Test sensation using pinprick or noxious stimuli. Test as many body parts as possible. -: 0=Normal;no sensory loss -: 1=Mile to moderate sensory loss (patient feels pin prick but is less sharp on affected side). -: 2=Severe or total sensory loss. 8. Responses: 1 9. Best Language: Instruct patient to: -: a. "Describe what you see in this picture." -: b. "Name the items in this picture." -: c. "Read these sentences." -: 0=No aphasia, normal -: 1=Mild to moderate aphasia. -: 2=Severe aphasia -: 3=Mute, global aphasia, no usable speech or auditory comprehension. 9. Responses: 0 10. Articulation, Dysarthia: Instruct patient to: -: "Read these words" or "Repeat these words" -: 0=Normal -: 1=Mild to moderate; patient may slur some words but can be understood without difficulty. -: 2=Severe; patients speech so slurred as to be unintelligible in the absence of dysphasia. -: UN=Intubated or other physical barrier, explain in comments. 10. Responses: 0 11. Extinction or inattention: 0=No abnormality -: 1= Visual, tactile, auditory, spatial, or personal inattention or extinction to bilateral simulation in one or the sensory modalities. -: 2=Profound waylon-inattention or waylon-inattention to more than one modality; does not recognize own hand. 11. Responses: 0 Total Score: 1
[2016-08-17 23:08] VITALS: BP 132/82
--- NOTE | 2016-08-18 08:41 | EKG REPORT ---
SEVERITY:- OTHERWISE NORMAL ECG - SINUS BRADYCARDIA : Confirmed by: Paige Hamlin MD 18-Aug-2016 08:40:48
== END 2016-08-17 23:09 | disposition home or self-care (01) ==
LOC: ER 20:11
DX: R20.0 Anesthesia of skin (principal); R00.1 Bradycardia, unspecified; I10 Essential (primary) hypertension; I25.10 Atherosclerotic heart disease of native coronary artery without angina pectoris; I25.2 Old myocardial infarction; Z98.61 Coronary angioplasty status; Z95.1 Presence of aortocoronary bypass graft; Z86.73 Personal history of transient ischemic attack (TIA), and cerebral infarction without residual deficits; Z79.02 Long term (current) use of antithrombotics/antiplatelets; Z82.49 Family history of ischemic heart disease and other diseases of the circulatory system
CPT/HCPCS: 36415; 70450; 71010; 80053; 82550; 83880; 84484; 85025; 85610; 85730; 93005; 93010; 99285

== ENCOUNTER → 2016-09-02 | Outpatient (CLI) | payer MEDICARE, OTHER ==
[2016-09-02 09:27] LABS: ALANINE AMINOTRANSFERASE 38 U/L (21-72); ALKALINE PHOSPHATASE 107 U/L (38-126); ASPARTATE AMINO TRANSFERASE 28 U/L (17-59); BILIRUBIN,DIRECT 0.3 mg/dL (0.0-0.4); BILIRUBIN,TOTAL 0.4 mg/dL (0.2-1.3); CHOLESTEROL 129.31 mg/dL (0-200); Direct HDL 37 mg/dL (>40); TOTAL PROTEIN 7.2 g/dL (6.3-8.2); TRIGLYCERIDES 129 mg/dL (<150)
[2016-09-02 09:38] LABS: DIRECT LDL 67 mg/dL (<100)
== END ==
LOC: OD 08:33
PROVIDERS: ATTEND Internal Medicine Cardiovascular Disease
DX: E78.2 Mixed hyperlipidemia (principal); R00.2 Palpitations; Z79.899 Other long term (current) drug therapy
CPT/HCPCS: 36415; 80061; 80076; 84443

== ENCOUNTER → 2017-04-04 | Outpatient (CLI) | payer MEDICARE ==
[2017-04-04 12:19] LABS: HEMATOCRIT 36.7 % (37.9-51.0); HEMOGLOBIN 12.4 g/dL (13.5-17.0); MEAN CORPUSCULAR HEMOGLOBIN 32.1 pg (27.0-33.4); MEAN CORPUSCULAR HGB CONC 33.9 g/dL (32.0-36.0); MEAN CORPUSCULAR VOLUME 95 fl (80-97); PLATELET COUNT 132 10^3/uL (150-450); RED BLOOD COUNT 3.88 10^6/uL (4.35-5.55); RED CELL DISTRIBUTION WIDTH 15.1 % (11.5-14.0); WHITE BLOOD COUNT 4.6 10^3/uL (4.0-10.5)
[2017-04-04 12:42] LABS: ALANINE AMINOTRANSFERASE 36 U/L (21-72); ALBUMIN 4.2 g/dL (3.5-5.0); ALKALINE PHOSPHATASE 78 U/L (38-126); ANION GAP 11 (5-19); ASPARTATE AMINO TRANSFERASE 28 U/L (17-59); BILIRUBIN,DIRECT 0.2 mg/dL (0.0-0.4); BILIRUBIN,TOTAL 0.3 mg/dL (0.2-1.3); BLOOD UREA NITROGEN 19 mg/dL (7-20); CARBON DIOXIDE 25 mmol/L (22-30); CHLORIDE 107 mmol/L (98-107); CHOLESTEROL 126.25 mg/dL (0-200); GLUCOSE 95 mg/dL (75-110); POTASSIUM 4.4 mmol/L (3.6-5.0); SODIUM 143.2 mmol/L (137-145); TOTAL PROTEIN 7.2 g/dL (6.3-8.2); TRIGLYCERIDES 94 mg/dL (<150)
[2017-04-04 12:53] LABS: DIRECT LDL 63 mg/dL (<100)
== END ==
LOC: OD 11:01
PROVIDERS: ATTEND Internal Medicine Cardiovascular Disease
DX: E78.2 Mixed hyperlipidemia (principal); I63.9 Cerebral infarction, unspecified; I10 Essential (primary) hypertension; Z79.899 Other long term (current) drug therapy
CPT/HCPCS: 36415; 80048; 80061; 80076; 85027

== ENCOUNTER → 2017-08-02 | Outpatient (CLI) | payer MEDICARE ==
[~2017-08-02] MED LIST changes: -AMINOPHYLLINE INJ/PF 250 MG/10 ML SDV IV ONE
--- NOTE | 2017-08-04 14:12 | RADIOLOGY REPORT ---
STRESS TEST REPORT PATIENT NAME: LIZETH GÓMEZ ROOM#: DATE OF SERVICE: 08/02/2017 AGE: 67Y ORDER#: [id number] REFERRING MD: MARY ECHAVARRIA M.D. PROCEDURE PERFORMED: Rest/stress, single isotope Cardiolite SPECT imaging with IV Lexiscan stress and gated SPECT imaging. INDICATION: Assessment of coronary artery disease. Patient is status post coronary bypass surgery with residual risk factors of hypertension and hypercholesterolemia and previous abnormal stress test with reversible ischemia in the anterior wall. REPORT The patient received IV Lexiscan of 0.4 mg infused over 10 seconds. Resting heart rate was 64 BPM and increased to 86 BPM at end infusion. The resting blood pressure was 124/77 and increased to 138/97 at end infusion. The patient had symptoms of chest pain, nausea, shortness of breath, mild headache, flushing. This dissipated after 2 minutes. The resting 12-lead EKG showed normal sinus rhythm 66 BPM with first degree AV block, old anterior [place]. At end infusion, no ST changes were seen. Myocardial perfusion imaging was performed at rest, 90 minutes after the injection of 11.39 mCi of Cardiolite. Repeat delyed resting imaging was done due to extracardiac uptake and bowel superimposed on the inferior wall of the heart. Images could not be improved. Ten seconds after patient was injected with 0.4 mg of Lexiscan, he was injected with 33.1 mCi of Cardiolite and flushed. Gated post-stress tomographic imaging was performed 60 minutes or longer after stress to try to improve images. SUMMARY OF FINDINGS: The overall quality of this study is poor. This is due to strong extracardiac bowel uptake superimposed on the inferior wall and inferolateral wall making this study nondiagnostic. There may be transient ischemic dilatation of the left ventricle, TID ratio was calculated to be 1.23 which is slightly abnormal. SPECT images showed a small area of reversible perfusion in the apical anterior wall. There is also a larger probably fixed effusion defect in the inferior wall and in the inferolateral wall, masked by extracardiac uptake from the bowels. The gated SPECT imaging showed reduced motion contraction in inferior wall and inferolateral wall. The left ventricular ejection fraction was calculated at 52%. IMPRESSION: Myocardial perfusion imaging is abnormal. This is a nondiagnostic test due to extracardiac bowel uptake superimposed on the inferior and inferolateral wall. There is a small area of moderate reversible perfusion in the apical anterior wall with probably large fixed perfusion defect in the inferior wall and inferolateral wall. Overall left ventricular systolic function was low/normal at 52%, with regional wall motion abnormality seen in the inferior wall and inferolateral wall. Previous study has also shown bowel contamination of the inferior wall and inferolateral wall. This study most likely unchanged from previous study. RECOMMENDATION: Continue optimal medical management, cardiac catheterization if patient has uncontrollable chest pains. INTERPRETING PHYSICIAN: MARY ECHAVARRIA M.D. /: [id number] TT: [id number] ID: [id number] /: [id number] TD: 0923 JOB: [id number] cc:MARY ECHAVARRIA M.D. > MTDD
== END ==
LOC: RAD 06:38
PROVIDERS: ATTEND Internal Medicine Cardiovascular Disease
DX: I25.718 Atherosclerosis of autologous vein coronary artery bypass graft(s) with other forms of angina pectoris (principal)
CPT/HCPCS: 93017; 78452; A9500; J2785; Q9969

== ENCOUNTER → 2017-10-03 | Outpatient (CLI) | payer MEDICARE, OTHER ==
[2017-10-03 12:15] LABS: ALANINE AMINOTRANSFERASE 28 U/L (21-72); ALKALINE PHOSPHATASE 71 U/L (38-126); ASPARTATE AMINO TRANSFERASE 25 U/L (17-59); BILIRUBIN,DIRECT 0.3 mg/dL (0.0-0.4); BILIRUBIN,TOTAL 0.6 mg/dL (0.2-1.3); CHOLESTEROL 114.07 mg/dL (0-200); CREATINE KINASE 74 U/L (55-170); TRIGLYCERIDES 122 mg/dL (<150)
[2017-10-03 12:31] LABS: DIRECT LDL 45 mg/dL (<100)
== END ==
LOC: OD 10:59
PROVIDERS: ATTEND Internal Medicine Cardiovascular Disease
DX: E78.2 Mixed hyperlipidemia (principal); Z79.899 Other long term (current) drug therapy
CPT/HCPCS: 36415; 80061; 80076; 82550

== ENCOUNTER → 2018-01-11 | Outpatient (CLI) | payer MEDICARE, BC ==
[2018-01-11 09:06] LABS: HEMATOCRIT 35.4 % (37.9-51.0); MEAN CORPUSCULAR HGB CONC 33.7 g/dL (32.0-36.0); MEAN CORPUSCULAR VOLUME 95 fl (80-97); PLATELET COUNT 148 10^3/uL (150-450); RED BLOOD COUNT 3.74 10^6/uL (4.35-5.55); RED CELL DISTRIBUTION WIDTH 15.1 % (11.5-14.0); WHITE BLOOD COUNT 5.7 10^3/uL (4.0-10.5)
[2018-01-11 09:28] LABS: ANION GAP 11 (5-19); BLOOD UREA NITROGEN 26 mg/dL (7-20); CALCIUM 9.4 mg/dL (8.4-10.2); CARBON DIOXIDE 28 mmol/L (22-30); CHLORIDE 101 mmol/L (98-107); GLUCOSE 97 mg/dL (75-110); POTASSIUM 4.7 mmol/L (3.6-5.0); SODIUM 139.5 mmol/L (137-145)
== END ==
LOC: OD 08:05
PROVIDERS: ATTEND Internal Medicine Cardiovascular Disease
DX: I10 Essential (primary) hypertension (principal)
CPT/HCPCS: 36415; 80048; 85027

== ENCOUNTER → 2018-02-14 | Outpatient (CLI) | payer MEDICARE, BC ==
[2018-02-14 09:53] LABS: ALANINE AMINOTRANSFERASE 27 U/L (21-72); ALBUMIN 3.9 g/dL (3.5-5.0); ALKALINE PHOSPHATASE 67 U/L (38-126); ANION GAP 8 (5-19); ASPARTATE AMINO TRANSFERASE 28 U/L (17-59); BILIRUBIN,DIRECT 0.2 mg/dL (0.0-0.4); BILIRUBIN,TOTAL 0.4 mg/dL (0.2-1.3); BLOOD UREA NITROGEN 27 mg/dL (7-20); CALCIUM 9.7 mg/dL (8.4-10.2); CARBON DIOXIDE 26 mmol/L (22-30); CHLORIDE 106 mmol/L (98-107); CHOLESTEROL 107.12 mg/dL (0-200); CREATINE KINASE 141 U/L (55-170); GLUCOSE 98 mg/dL (75-110); POTASSIUM 4.6 mmol/L (3.6-5.0); SODIUM 139.5 mmol/L (137-145); TOTAL PROTEIN 6.8 g/dL (6.3-8.2); TRIGLYCERIDES 70 mg/dL (<150)
[2018-02-14 10:04] LABS: DIRECT LDL 52 mg/dL (<100)
== END ==
LOC: OD 08:29
PROVIDERS: ATTEND Internal Medicine Cardiovascular Disease
DX: I10 Essential (primary) hypertension (principal); R25.2 Cramp and spasm; E78.2 Mixed hyperlipidemia; Z79.899 Other long term (current) drug therapy
CPT/HCPCS: 36415; 80048; 80061; 80076; 82550

== ENCOUNTER → 2018-05-09 | Outpatient (CLI) | payer MEDICARE ==
[2018-05-09 10:25] LABS: ANION GAP 8 (5-19); BLOOD UREA NITROGEN 21 mg/dL (7-20); CALCIUM 9.6 mg/dL (8.4-10.2); CARBON DIOXIDE 27 mmol/L (22-30); CHLORIDE 104 mmol/L (98-107); GLUCOSE 95 mg/dL (75-110); POTASSIUM 4.4 mmol/L (3.6-5.0); SODIUM 139.1 mmol/L (137-145)
== END ==
LOC: OD 08:17
PROVIDERS: ATTEND Internal Medicine Cardiovascular Disease
DX: N18.3 Chronic kidney disease, stage 3 (moderate) (principal); R73.01 Impaired fasting glucose; Z79.899 Other long term (current) drug therapy
CPT/HCPCS: 36415; 80048; 83036; 83735

== ENCOUNTER → 2018-06-22 | Outpatient (CLI) | payer MEDICARE ==
[2018-06-22 15:34] LABS: ANION GAP 11 (5-19); BLOOD UREA NITROGEN 24 mg/dL (7-20); CALCIUM 9.5 mg/dL (8.4-10.2); CARBON DIOXIDE 25 mmol/L (22-30); CHLORIDE 104 mmol/L (98-107); GLUCOSE 133 mg/dL (75-110); POTASSIUM 4.7 mmol/L (3.6-5.0); SODIUM 139.6 mmol/L (137-145)
== END ==
LOC: LAB 14:50
PROVIDERS: ATTEND Internal Medicine Cardiovascular Disease
DX: N18.3 Chronic kidney disease, stage 3 (moderate) (principal); R06.02 Shortness of breath; R60.0 Localized edema
CPT/HCPCS: 36415; 80048; 83880

== ENCOUNTER → 2018-06-29 | Outpatient (CLI) | payer MEDICARE ==
[2018-06-29 14:37] LABS: ANION GAP 13 (5-19); BLOOD UREA NITROGEN 30 mg/dL (7-20); CALCIUM 9.5 mg/dL (8.4-10.2); CARBON DIOXIDE 26 mmol/L (22-30); CHLORIDE 102 mmol/L (98-107); GLUCOSE 137 mg/dL (75-110); POTASSIUM 4.2 mmol/L (3.6-5.0); SODIUM 140.5 mmol/L (137-145)
== END ==
LOC: LAB 13:33
PROVIDERS: ATTEND Internal Medicine Cardiovascular Disease
DX: R60.0 Localized edema (principal); N18.3 Chronic kidney disease, stage 3 (moderate)
CPT/HCPCS: 36415; 80048

== ENCOUNTER → 2018-07-12 | Outpatient (CLI) | payer MEDICARE ==
[2018-07-12 10:13] LABS: ANION GAP 11 (5-19); BLOOD UREA NITROGEN 37 mg/dL (7-20); CALCIUM 9.6 mg/dL (8.4-10.2); CARBON DIOXIDE 26 mmol/L (22-30); CHLORIDE 105 mmol/L (98-107); GLUCOSE 104 mg/dL (75-110); POTASSIUM 4.7 mmol/L (3.6-5.0); SODIUM 141.8 mmol/L (137-145)
== END ==
LOC: LAB 09:34
PROVIDERS: ATTEND Internal Medicine Cardiovascular Disease
DX: N18.3 Chronic kidney disease, stage 3 (moderate) (principal)
CPT/HCPCS: 36415; 80048

== ENCOUNTER → 2018-09-05 | Outpatient (CLI) | payer MEDICARE ==
[2018-09-05 09:00] LABS: HEMATOCRIT 35.6 % (37.9-51.0); MEAN CORPUSCULAR HEMOGLOBIN 31.5 pg (27.0-33.4); MEAN CORPUSCULAR HGB CONC 33.8 g/dL (32.0-36.0); MEAN CORPUSCULAR VOLUME 93 fl (80-97); PLATELET COUNT 158 10^3/uL (150-450); RED BLOOD COUNT 3.81 10^6/uL (4.35-5.55); RED CELL DISTRIBUTION WIDTH 14.3 % (11.5-14.0); WHITE BLOOD COUNT 4.7 10^3/uL (4.0-10.5)
[2018-09-05 09:35] LABS: ALANINE AMINOTRANSFERASE 27 U/L (21-72); ALKALINE PHOSPHATASE 69 U/L (38-126); ANION GAP 8 (5-19); ASPARTATE AMINO TRANSFERASE 24 U/L (17-59); BILIRUBIN,DIRECT 0.2 mg/dL (0.0-0.4); BILIRUBIN,TOTAL 0.4 mg/dL (0.2-1.3); BLOOD UREA NITROGEN 20 mg/dL (7-20); CARBON DIOXIDE 27 mmol/L (22-30); CHLORIDE 104 mmol/L (98-107); CHOLESTEROL 100.01 mg/dL (0-200); GLUCOSE 96 mg/dL (75-110); IRON(TIBC) 66.4 ug/dL (49-181); POTASSIUM 4.6 mmol/L (3.6-5.0); TRIGLYCERIDES 135 mg/dL (<150)
[2018-09-05 09:36] LABS: APPEARANCE,URINE CLEAR; BILIRUBIN,URINE NEGATIVE (NEGATIVE); COLOR,URINE STRAW; GLUCOSE, URINE NEGATIVE (NEGATIVE); KETONES,URINE NEGATIVE (NEGATIVE)
[2018-09-05 09:37] LABS: LEUKOCYTE ESTERASE,URINE NEGATIVE (NEGATIVE); NITRITE,URINE NEGATIVE (NEGATIVE); PROTEIN,URINE 30 mg/dL (NEGATIVE); URINE SPECIFIC GRAVITY 1.005; UROBILINOGEN,URINE NEGATIVE mg/dL (<2.0)
[2018-09-05 09:51] LABS: DIRECT LDL 51 mg/dL (<100)
== END ==
LOC: LAB 08:39
PROVIDERS: ATTEND Internal Medicine Cardiovascular Disease
DX: D64.9 Anemia, unspecified (principal); E78.2 Mixed hyperlipidemia; I10 Essential (primary) hypertension; Z79.899 Other long term (current) drug therapy
CPT/HCPCS: 36415; 80048; 80061; 80076; 81001; 82272; 82728; 83540; 83550; 84466; 85027

== ENCOUNTER → 2019-03-09 | Outpatient (CLI) | payer MEDICARE ==
[2019-03-09 09:21] LABS: ALBUMIN 3.8 g/dL (3.5-5.0); ALKALINE PHOSPHATASE 78 U/L (38-126); ANION GAP 11 (5-19); ASPARTATE AMINO TRANSFERASE 35 U/L (17-59); BILIRUBIN,DIRECT 0.2 mg/dL (0.0-0.4); BILIRUBIN,TOTAL 0.3 mg/dL (0.2-1.3); BLOOD UREA NITROGEN 30 mg/dL (7-20); CALCIUM 8.8 mg/dL (8.4-10.2); CARBON DIOXIDE 23 mmol/L (22-30); CHLORIDE 110 mmol/L (98-107); CHOLESTEROL 152.23 mg/dL (0-200); GLUCOSE 79 mg/dL (75-110); POTASSIUM 4.2 mmol/L (3.6-5.0); TOTAL PROTEIN 7.3 g/dL (6.3-8.2); TRIGLYCERIDES 204 mg/dL (<150)
[2019-03-09 09:32] LABS: DIRECT LDL 79 mg/dL (<100)
[2019-03-09 09:36] LABS: VLDL CHOLESTEROL 40.8 mg/dL (10-31)
== END ==
LOC: OD 08:13
PROVIDERS: ATTEND Internal Medicine Cardiovascular Disease
DX: E78.2 Mixed hyperlipidemia (principal); I10 Essential (primary) hypertension; Z79.899 Other long term (current) drug therapy
CPT/HCPCS: 36415; 80048; 80061; 80076

== ENCOUNTER → 2019-04-11 | Outpatient (CLI) | payer MEDICARE ==
[2019-04-11 08:44] LABS: HEMATOCRIT 33.9 % (37.9-51.0); HEMOGLOBIN 11.7 g/dL (13.5-17.0); MEAN CORPUSCULAR HEMOGLOBIN 32.1 pg (27.0-33.4); MEAN CORPUSCULAR HGB CONC 34.6 g/dL (32.0-36.0); MEAN CORPUSCULAR VOLUME 93 fl (80-97); PLATELET COUNT 143 10^3/uL (150-450); RED BLOOD COUNT 3.65 10^6/uL (4.35-5.55); RED CELL DISTRIBUTION WIDTH 15.6 % (11.5-14.0); WHITE BLOOD COUNT 4.8 10^3/uL (4.0-10.5)
[2019-04-11 08:49] LABS: APPEARANCE,URINE CLEAR; BILIRUBIN,URINE NEGATIVE (NEGATIVE); COLOR,URINE STRAW; GLUCOSE, URINE NEGATIVE (NEGATIVE); KETONES,URINE NEGATIVE (NEGATIVE); LEUKOCYTE ESTERASE,URINE NEGATIVE (NEGATIVE); NITRITE,URINE NEGATIVE (NEGATIVE); PROTEIN,URINE 100 mg/dL (NEGATIVE); URINE SPECIFIC GRAVITY 1.012; UROBILINOGEN,URINE NEGATIVE mg/dL (<2.0)
[2019-04-11 09:11] LABS: ALKALINE PHOSPHATASE 84 U/L (38-126); ANION GAP 9 (5-19); ASPARTATE AMINO TRANSFERASE 37 U/L (17-59); BILIRUBIN,DIRECT 0.3 mg/dL (0.0-0.4); BILIRUBIN,TOTAL 0.4 mg/dL (0.2-1.3); BLOOD UREA NITROGEN 23 mg/dL (7-20); CALCIUM 9.3 mg/dL (8.4-10.2); CARBON DIOXIDE 25 mmol/L (22-30); CHLORIDE 107 mmol/L (98-107); CHOLESTEROL 153.05 mg/dL (0-200); GLUCOSE 85 mg/dL (75-110); IRON(TIBC) 112.6 ug/dL (49-181); POTASSIUM 4.2 mmol/L (3.6-5.0); TOTAL PROTEIN 7.4 g/dL (6.3-8.2); TRIGLYCERIDES 180 mg/dL (<150)
[2019-04-11 09:23] LABS: DIRECT LDL 83 mg/dL (<100)
== END ==
LOC: OD 07:53
PROVIDERS: ATTEND Physician Assistant
DX: E78.2 Mixed hyperlipidemia (principal); I10 Essential (primary) hypertension; D64.9 Anemia, unspecified; Z79.899 Other long term (current) drug therapy
CPT/HCPCS: 36415; 80048; 80061; 80076; 81001; 82272; 82728; 83540; 83550; 84466; 85027

== ENCOUNTER → 2019-05-21 | Outpatient (CLI) | payer MEDICARE ==
[2019-05-21 09:20] LABS: ALBUMIN 3.6 g/dL (3.5-5.0); ALKALINE PHOSPHATASE 72 U/L (38-126); ANION GAP 7 (5-19); ASPARTATE AMINO TRANSFERASE 32 U/L (17-59); BILIRUBIN,TOTAL 0.3 mg/dL (0.2-1.3); BLOOD UREA NITROGEN 19 mg/dL (7-20); CARBON DIOXIDE 26 mmol/L (22-30); CHLORIDE 108 mmol/L (98-107); CHOLESTEROL 94.73 mg/dL (0-200); GLUCOSE 85 mg/dL (75-110); POTASSIUM 4.1 mmol/L (3.6-5.0); TOTAL PROTEIN 6.5 g/dL (6.3-8.2); TRIGLYCERIDES 101 mg/dL (<150)
[2019-05-21 09:32] LABS: DIRECT LDL 45 mg/dL (<100)
== END ==
LOC: OD 07:31
PROVIDERS: ATTEND Internal Medicine Cardiovascular Disease
DX: E78.2 Mixed hyperlipidemia (principal); I10 Essential (primary) hypertension; R06.02 Shortness of breath; Z79.899 Other long term (current) drug therapy
CPT/HCPCS: 36415; 80048; 80061; 80076; 83735; 83880

== ENCOUNTER → 2019-10-04 | Outpatient (CLI) | payer MEDICARE ==
[~2019-10-04] MED LIST changes: +AMINOPHYLLINE INJ/PF 250 MG/10 ML SDV IV ONE
--- NOTE | 2019-10-04 13:00 | NON-INVASIVE CARDIOLOGY (SQ) ---
INTRAVENOUS LEXISCAN CARDIOLITE STRESS TEST USING SINGLE PHOTON EMMISION COMPUTERIZED TOMOGRAPHIC. DATE OF PROCEDURE: October 04, 2019. INDICATION : CAD with prior history of CABG, stent. Patient with dyspnea. CARDIAC RISK FACTORS: Known CAD, hypertension RESTING EKG: Sinus rhythm, non-progression of R waves V1 to V3, no acute ST-T wave changes, increased QRS voltage suggestive of LVH. STRESS EKG: No significant ST segment changes noted with LexiScan bolus REASON FOR TERMINATION: Protocol. PROCEDURE REPORT: Baseline heart rate 51 beats per minute with blood pressure of 148/70. Patient had no significant complaints. Patient was bolused with Lexiscan 0.4 mg intravenously followed by saline bolus. Heart rate at 2 minutes post bolus 81 with a blood pressure of 129/70. 3 minutes post bolus heart rate 67 with blood pressure of 141/74. No significant EKG changes were noted. Patient had no significant complaints during the procedure or postprocedure. CONCLUSIONS: Normal EKG and hemodynamic response to IV LexiScan. NUCLEAR DATA: At rest the patient was given 10.72 millicuries of technetium 99 sestamibi injected intravenously. As per protocol rest gated SPECT images were obtained. On day of stress test, the patient was given intravenous LexiScan at a dose of 0.4 mg in 5 mL intravenously, followed by flush with normal saline. Subsequently the stress dose of 31.5 millicuries of technetium 99 sestamibi was injected intravenously. As per protocol stress gated images were obtained. NOTE: Patient received 2 doses of Lexiscan, because the first dose has infiltrated. Second dose was given only after patient was reported to feel normal and approximately 15 minutes after the first dose. Approximately 3 minutes after the second dose and after injection of the nuclear isotope, patient received Aminophyllin 100 mg. NUCLEAR INTERPRETATION: Both raw and processed data were used for interpretation. Visual, qualitative, computer-generated quantitative data was used. There was good myocardial uptake of technetium compound. Motion artifact and soft tissue attenuations were noted. Increased visceral uptake was noted. There was overlap with liver and visceral uptake with the inferior myocardium, therefore there is some loss of sensitivity and specificity. However no definitive areas of transient perfusion defect noted, No definitive areas of fixed perfusion defect or scars noted. Mild scattered mild ischemia involving the inferior wall cannot be entirely ruled out. EKG gated imaging showed LV EF at 51 %, rest and stress gated EF similar visually. T. I D. ratio was 1.07. Lung heart ratio noted to be within normal limits 0.29. No significant extracardiac and abnormal radiotracer activities were noted. RV free wall uptake was noted to be increased. IMPRESSION: Also refer to comments under nuclear interpretation. Also test results needs to be interpreted in the context of pretest probability. Recommend clinical correlation due to significant visceral and liver uptake which overlapped the inferior myocardium perfusion. 1. No definitive areas of transient perfusion defect noted. Please refer to note under nuclear interpretation. 2. There is no definitive scintigraphic evidence of myocardial infarction/scar. Please refer to note under nuclear interpretation. 3. EKG gated imaging shows left ventricular ejection fraction of approx. 51 %. 4. Clinical correlation requested as worse disease and or balanced ischemia could be missed. In approximately 10% of the cases Lexiscan may not cause adequate vasodilatory stress. RECOMMENDATIONS: Aggressive risk factor modification and medical management. Further evaluation may be needed if continued symptoms or other high risk indicators are noted on clinical evaluation. Close cardiology follow-up is also recommended. Clinical correlation with echocardiogram derived ejection fraction. Inability to exercise by itself can lead to increased cardiovascular event risks. Consider cardiology consultation and or follow-up if clinically indicated. I am available for cardiology evaluation and consultation if requested by the supervisor assembly department, unless patient already has a sales representative supervisor. Dr. Luis Arcos. MRCP Board certified in cardiology and sleep medicine. Board certified in nuclear cardiology, adult echocardiography. [facility]
== END ==
LOC: RAD 07:15
PROVIDERS: ATTEND Internal Medicine Cardiovascular Disease
DX: I25.718 Atherosclerosis of autologous vein coronary artery bypass graft(s) with other forms of angina pectoris (principal); I10 Essential (primary) hypertension; R06.00 Dyspnea, unspecified; Z95.1 Presence of aortocoronary bypass graft
CPT/HCPCS: 93017; 78452; A9500; J2785; J0280; Q9969

== ENCOUNTER → 2020-01-07 | Outpatient (CLI) | payer MEDICARE ==
[2020-01-07 11:57] LABS: ALBUMIN 4.1 g/dL (3.5-5.0); ALKALINE PHOSPHATASE 92 U/L (38-126); ANION GAP 12 (5-19); ASPARTATE AMINO TRANSFERASE 32 U/L (17-59); BILIRUBIN,DIRECT 0.2 mg/dL (0.0-0.4); BILIRUBIN,TOTAL 0.3 mg/dL (0.2-1.3); BLOOD UREA NITROGEN 20 mg/dL (7-20); CALCIUM 9.4 mg/dL (8.4-10.2); CARBON DIOXIDE 23 mmol/L (22-30); CHLORIDE 106 mmol/L (98-107); CHOLESTEROL 115.61 mg/dL (0-200); GLUCOSE 80 mg/dL (75-110); POTASSIUM 4.6 mmol/L (3.6-5.0); TOTAL PROTEIN 7.1 g/dL (6.3-8.2); TRIGLYCERIDES 83 mg/dL (<150)
[2020-01-07 12:08] LABS: DIRECT LDL 47 mg/dL (<100)
== END ==
LOC: OD 10:00
PROVIDERS: ATTEND Internal Medicine Cardiovascular Disease
DX: I12.9 Hypertensive chronic kidney disease with stage 1 through stage 4 chronic kidney disease, or unspecified chronic kidney disease (principal); N18.30 Chronic kidney disease, stage 3 unspecified; R06.02 Shortness of breath; E78.2 Mixed hyperlipidemia; Z79.899 Other long term (current) drug therapy
CPT/HCPCS: 36415; 80048; 80061; 80076; 83735; 83880

== ENCOUNTER → 2020-03-01 | Outpatient (CLI) | payer MEDICARE, OTHER ==
[2020-03-01 10:24] LABS: ANION GAP 9 (5-19); BLOOD UREA NITROGEN 31 mg/dL (7-20); CALCIUM 9.7 mg/dL (8.4-10.2); CARBON DIOXIDE 24 mmol/L (22-30); CHLORIDE 108 mmol/L (98-107); GLUCOSE 94 mg/dL (75-110); POTASSIUM 4.8 mmol/L (3.6-5.0)
== END ==
LOC: OD 08:13
PROVIDERS: ATTEND Internal Medicine Cardiovascular Disease
DX: N18.30 Chronic kidney disease, stage 3 unspecified (principal); E83.42 Hypomagnesemia; R06.02 Shortness of breath
CPT/HCPCS: 36415; 80048; 83735; 83880